=== PATIENT | female | born 1960 | race African-American/Black ===

== ENCOUNTER 2018-12-12 12:45 | Emergency (ER) | payer SELFPAY ==
[~2018-12-12] VITALS: Ht 175.3 cm; Wt 73.9 kg
--- NOTE | 2018-12-12 14:28 | PHYS DOC ---
Past Medical History Past Medical History: Cancer (gastric cancer) Additional Past Surgical Histo: partial gastrectomy Smoking: Cigarettes (The patient is a nonsmoker.) Alcohol Use: Rarely Adult General Chief Complaint Chief Complaint: ABDOMINAL PAIN HPI HPI patient is a 58-year-old female, who presents to the emergency department for evaluation. She states she just moved to this area from [place]. She states she has been diagnosed with hiatal hernia, and has been having some generalized abdominal pain for the past 2-3 weeks. She has had some intermittent vomiting, but this is not abnormal for her. She has not had any diarrhea, or urinary symptoms, bloody emesis, bloody stools. She's had some intermittent chest pain, but this has been going on for months and is not a new or acute problem for her. She denies any exertional chest pain, shortness of breath, dizziness, lightheadedness, fevers, or chills. There are no alleviating or exacerbating factors to her symptoms. Review of Systems Review of Systems Constitutional: Denies fever or chills [] Eyes: Denies change in visual acuity, redness, or eye pain [] HENT: Denies nasal congestion or sore throat [] Respiratory: Denies cough or shortness of breath [] Cardiovascular: No additional information not addressed in HPI [] GI: No additional information not addressed in HPI [] : Denies dysuria or hematuria [] Musculoskeletal: Denies back pain or joint pain [] Integument: Denies rash or skin lesions [] Neurologic: Denies headache, focal weakness or sensory changes [] Endocrine: Denies polyuria or polydipsia [] All other systems were reviewed and found to be within normal limits, except as documented in this note. Current Medications Current Medications Current Medications Medications (Trade) Dose Ordered Sig/Britney Start Time Stop Time Status Last Admin Dose Admin Diphenhydramine HCl (Benadryl) 25 mg 1X ONCE 12/12/18 15:45 12/12/18 15:46 DC 12/12/18 15:43 25 MG Info (CONTRAST GIVEN -- Rx MONITORING) 1 each PRN DAILY PRN 12/12/18 15:30 12/14/18 15:29 Iohexol (Omnipaque 300 Mg/ml) 75 ml 1X ONCE 12/12/18 15:15 12/12/18 15:17 DC 12/12/18 16:28 75 ML Morphine Sulfate (Morphine Sulfate) 4 mg 1X ONCE 12/12/18 14:30 12/12/18 14:32 DC 12/12/18 15:03 4 MG Allergies Allergies Allergies Coded Allergies Type Severity Reaction Last Updated Verified acetaminophen Allergy Intermediate Itching 12/12/18 Yes oxycodone Allergy Intermediate Itching 12/12/18 Yes Physical Exam Physical Exam PHYSICAL EXAM: CONSTITUTIONAL: Well developed, well nourished HEAD: normocephalic, atraumatic EENT: PERRL, EOMI. Conjunctivae normal color, sclerae non-icteric; moist mucous membranes. NECK: Supple, non-tender; no meningismus. LUNGS: Lungs CTA, breathing even and unlabored. Normal air movement. HEART: Regular rate and rhythm, no murmur CHEST: No deformity; non-tender ABDOMEN: The abdomen is soft, normal bowel sounds are present, there is mild diffuse tenderness to palpation to the entire abdomen, without focal tenderness, rebound, or guarding, no masses or bruits. EXTREM: Normal ROM; no deformity, no calf tenderness. Normal pulses palpable in all extremities. There is no pedal edema. SKIN: No rash; no diaphoresis NEURO: Alert; normal speech and cognition; CN's grossly intact; strength grossly intact without focal deficit. BACK: No CVA TTP. Current Patient Data Vital Signs Vital Signs Date Time Temp Pulse Resp B/P (MAP) Pulse Ox O2 Delivery O2 Flow Rate FiO2 12/12/18 14:00 98.1 81 16 172/84 (113) 99 Room Air 98.1 Lab Values Laboratory Tests Test 12/12/18 14:00 12/12/18 14:50 Urine Collection Type Void Urine Color Yellow Urine Clarity Clear Urine pH 5.0 Urine Specific [place] 1.015 Urine Protein Negative mg/dL (NEG-TRACE) Urine Glucose (UA) Negative mg/dL (NEG) Urine Ketones (Stick) Negative mg/dL (NEG) Urine Blood Negative (NEG) Urine Nitrite Negative (NEG) Urine Bilirubin Negative (NEG) Urine Urobilinogen Dipstick 0.2 mg/dL (0.2 mg/dL) Urine Leukocyte Esterase Negative (NEG) Urine RBC 0 /HPF (0-2) Urine WBC Rare /HPF (0-4) Urine Squamous Epithelial Cells Many /LPF Urine Bacteria Many /HPF (0-FEW) Urine Mucus Slight /LPF White Blood Count 7.5 x10^3/uL (4.0-11.0) Red Blood Count 3.97 x10^6/uL (3.50-5.40) Hemoglobin 11.8 g/dL (12.0-15.5) L Hematocrit 35.1 % (36.0-47.0) L Mean Corpuscular Volume 88 fL (79-100) Mean Corpuscular Hemoglobin 30 pg (25-35) Mean Corpuscular Hemoglobin Concent 34 g/dL (31-37) Red Cell Distribution Width 14.6 % (11.5-14.5) H Platelet Count 417 x10^3/uL (140-400) H Neutrophils (%) (Auto) 55 % (31-73) Lymphocytes (%) (Auto) 34 % (24-48) Monocytes (%) (Auto) 8 % (0-9) Eosinophils (%) (Auto) 2 % (0-3) Basophils (%) (Auto) 1 % (0-3) Neutrophils # (Auto) 4.1 x10^3/uL (1.8-7.7) Lymphocytes # (Auto) 2.6 x10^3/uL (1.0-4.8) Monocytes # (Auto) 0.6 x10^3/uL (0.0-1.1) Eosinophils # (Auto) 0.2 x10^3/uL (0.0-0.7) Basophils # (Auto) 0.1 x10^3/uL (0.0-0.2) Sodium Level 140 mmol/L (136-145) Potassium Level 4.4 mmol/L (3.5-5.1) Chloride Level 103 mmol/L (98-107) Carbon Dioxide Level 29 mmol/L (21-32) Anion Gap 8 (6-14) Blood Urea Nitrogen 14 mg/dL (7-20) Creatinine 0.9 mg/dL (0.6-1.0) Estimated GFR (Cockcroft-Gault) 78.4 BUN/Creatinine Ratio 16 (6-20) Glucose Level 124 mg/dL (70-99) H Calcium Level 10.4 mg/dL (8.5-10.1) H Total Bilirubin 0.4 mg/dL (0.2-1.0) Aspartate Amino Transferase (AST) 12 U/L (15-37) L Alanine Aminotransferase (ALT) 14 U/L (14-59) Alkaline Phosphatase 90 U/L (46-116) Troponin I Quantitative < 0.017 ng/mL (0.000-0.055) Total Protein 7.6 g/dL (6.4-8.2) Albumin 3.5 g/dL (3.4-5.0) Albumin/Globulin Ratio 0.9 (1.0-1.7) L Lipase 39 U/L (73-393) L Laboratory Tests 12/12/18 14:50 Laboratory Tests 12/12/18 14:50 EKG EKG Normal sinus rhythm with a normal rate, normal axis, normal intervals, there are no acute ischemic ST/T changes.[] Radiology/Procedures Radiology/Procedures [PROCEDURE: CT ABD PELV W/ IV CONTRST ONLY Exam performed: CT scan of the abdomen and pelvis with contrast Clinical Indication:Abdominal pain Date of Service: 12/12/2018 comparison: None available Technique: Contiguous helical acquisitions are obtained from the lung bases to the pelvis during intravenous administration of [75 cc of Omnipaque 300]. Sagittal and coronal reformatted images were obtained and reviewed. CT abdomen findings: The lung bases appear essentially clear. Visualized heart is normal. The liver, spleen ,gall bladder and pancreas appears unremarkable. Both adrenal glands are symmetric. Left superior renal pole scarring and hypertrophic changes. The right kidney appears normal. There is a probable cyst in the right midpole. No hydronephrosis. Aorta is normal in caliber.. The small bowel loops appear nondilated and unremarkable. Aorta is normal in caliber. There is no retroperitoneal lymphadenopathy or mass lesions. No bowel related inflammatory stranding is noted. The urinary bladder is well distended and normal . Multiple surgical clips are seen in both iliac regions and pelvic sidewalls. Interrogation of bone windows demonstrates no obvious bony abnormality. Sagittal and coronal reformatted images were obtained and reviewed which demonstrate no additional findings. Impression abdomen and pelvis : 1. Atrophic changes left superior renal pole perhaps related to previous infection or ischemia. Probable right renal cyst. 2. No acute intra-abdominal or pelvic process seen.] Course & Med Decision Making Course & Med Decision Making Pertinent Labs and Imaging studies reviewed. (See chart for details) []5:10 PM:Patient remains stable. I discussed test results, the need for close follow-up, and return precautions. Dragon Disclaimer Dragon Disclaimer This electronic medical record was generated, in whole or in part, using a voice recognition dictation system. Departure Departure Impression: Primary Impression: Abdominal pain Disposition: 01 HOME, SELF-CARE Condition: STABLE Referrals: SHARITA VILCHIS MD Patient Instructions: Abdominal Pain Scripts Dicyclomine Hcl (DICYCLOMINE HCL) 20 Mg Tablet 1 TAB PO TID PRN for Abdominal Pain, #20 TAB 1 Refill Prov: TIAGO BEST MD 12/12/18 Omeprazole (OMEPRAZOLE) 20 Mg Capsule. 1 CAP PO DAILY, #30 CAP Prov: TIAGO BEST MD 12/12/18 TIAGO BEST MD Dec 12, 2018 14:28
[2018-12-12] MEDS ORDERED: MORPHINE SULFATE 4 MG/ML VIAL. IV ONE (14:30)
[2018-12-12 14:59] LABS: BILIRUBIN,URINE NEGATIVE (NEG); CLARITY,URINE CLEAR; COLOR,URINE YELLOW; NITRITE,URINE NEGATIVE (NEG); PROTEIN,URINE NEGATIVE (NEG-TRACE); UROBILINOGEN,URINE 0.2 mg/dL (0.2 mg/dL)
[2018-12-12 15:06] LABS: BASO # 0.1 x10^3/uL (0.0-0.2); BASO % 1 % (0-3); EOS # 0.2 x10^3/uL (0.0-0.7); EOS % 2 % (0-3); HEMATOCRIT 35.1 % (36.0-47.0); HEMOGLOBIN 11.8 g/dL (12.0-15.5); LYMPH # 2.6 x10^3/uL (1.0-4.8); LYMPH % 34 % (24-48); MEAN CORPUSCULAR HEMOGLOBIN 30 pg (25-35); MEAN CORPUSCULAR HGB CONC 34 g/dL (31-37); MEAN CORPUSCULAR VOLUME 88 fL (79-100); MONO # 0.6 x10^3/uL (0.0-1.1); MONO % 8 % (0-9); NEUT # 4.1 x10^3/uL (1.8-7.7); NEUT % 55 % (31-73); PLATELET COUNT 417 x10^3/uL (140-400); RED BLOOD COUNT 3.97 x10^6/uL (3.50-5.40); RED CELL DISTRIBUTION WIDTH 14.6 % (11.5-14.5); WHITE BLOOD COUNT 7.5 x10^3/uL (4.0-11.0)
[2018-12-12] MEDS ORDERED: IOHEXOL 300 MG/ML 100ML VIAL. IV ONE (15:15)
[2018-12-12 15:19] LABS: BACTERIA,URINE MANY /HPF (0-FEW); RBC,URINE 0 /HPF (0-2); SQUAMOUS EPITHELIAL CELL,UR MANY /LPF; WBC,URINE RARE /HPF (0-4)
[2018-12-12 15:21] LABS: CALCIUM 10.4 mg/dL (8.5-10.1); CREATININE 0.9 mg/dL (0.6-1.0); GFR 78.4; POTASSIUM 4.4 mmol/L (3.5-5.1)
[2018-12-12 15:27] LABS: ALBUMIN 3.5 g/dL (3.4-5.0); ALBUMIN/GLOBULIN RATIO 0.9 (1.0-1.7); TOTAL BILIRUBIN 0.4 mg/dL (0.2-1.0); TOTAL PROTEIN 7.6 g/dL (6.4-8.2)
[2018-12-12] MEDS ORDERED: CONTRAST GIVEN. MC PRN (15:30)
[2018-12-12] MEDS ORDERED: diphenhydrAMINE 50 MG/ML VIAL IVP ONE (15:45)
--- NOTE | 2018-12-12 16:49 | RAD ---
Exam performed: CT scan of the abdomen and pelvis with contrast Clinical Indication:Abdominal pain Date of Service: 12/12/2018 comparison: None available Technique: Contiguous helical acquisitions are obtained from the lung bases to the pelvis during intravenous administration of [75 cc of Omnipaque 300]. Sagittal and coronal reformatted images were obtained and reviewed. CT abdomen findings: The lung bases appear essentially clear. Visualized heart is normal. The liver, spleen ,gall bladder and pancreas appears unremarkable. Both adrenal glands are symmetric. Left superior renal pole scarring and hypertrophic changes. The right kidney appears normal. There is a probable cyst in the right midpole. No hydronephrosis. Aorta is normal in caliber.. The small bowel loops appear nondilated and unremarkable. Aorta is normal in caliber. There is no retroperitoneal lymphadenopathy or mass lesions. No bowel related inflammatory stranding is noted. The urinary bladder is well distended and normal . Multiple surgical clips are seen in both iliac regions and pelvic sidewalls. Interrogation of bone windows demonstrates no obvious bony abnormality. Sagittal and coronal reformatted images were obtained and reviewed which demonstrate no additional findings. Impression abdomen and pelvis : 1. Atrophic changes left superior renal pole perhaps related to previous infection or ischemia. Probable right renal cyst. 2. No acute intra-abdominal or pelvic process seen. PQRS Compliance Statement: One or more of the following individualized dose reduction techniques were utilized for this examination: 1. Automated exposure control 2. Adjustment of the mA and/or kV according to patient size 3. Use of iterative reconstruction technique Electronically signed by: Nhung Alonso MD (12/12/2018 4:46 PM) [facility]
[2018-12-12] MEDS ORDERED: OMEP20CA10 PO (17:13)
[2018-12-12] MEDS ORDERED: DICY20TA3 PO (17:13)
[2018-12-12 17:30] VITALS: BP 141/78
--- NOTE | 2018-12-13 06:31 | EKG ---
[facility] [address] [place] [address] Test Date: 2018-12-12 Test Time: 14:38:58 Pat Name: NATALY RESTREPO Department: Room: Gender: F Hybrid Technologist: : 1960 Requested By: TIAGO BEST Order Number: [id number] Reading MD: Measurements Intervals [place] Rate: 69 P: 62 [place]: 152 QRS: 45 QRSD: 86 T: 20 QT: 360 QTc: 387 Interpretive Statements SINUS RHYTHM NORMAL ECG RI6.01 No previous ECG available for comparison
== END 2018-12-12 17:45 | disposition home or self-care (01) ==
LOC: ER 12:45
DX: R10.84 Generalized abdominal pain (principal); Z90.3 Acquired absence of stomach [part of]; Z98.890 Other specified postprocedural states; Z88.5 Allergy status to narcotic agent; Z88.6 Allergy status to analgesic agent
CPT/HCPCS: 36415; 74177; 80053; 81001; 83690; 84484; 85025; 87086; 93005; 96374; 96375; 99285; J1200; J2270; Q9967